=== PATIENT | female | born 1965 | race Caucasian/White ===

== ENCOUNTER 2023-03-30 09:22 | Day surgery (SDC) | payer OTHER ==
[~2023-03-30] VITALS: Ht 160 cm; Wt 68.9 kg
[2023-03-30] MEDS ORDERED: INSULIN REGULAR, HUMAN 100 UNIT/ML VIAL IVP SCH (10:25)
[2023-03-30] MEDS ORDERED: diphenhydrAMINE 50 MG/ML VIAL ONE (11:16)
[2023-03-30] MEDS ORDERED: MIDAZOLAM 5 MG/5 ML VIAL ONE (11:16)
[2023-03-30] MEDS ORDERED: fentaNYL citrate 0.05 MG/ML VIAL ONE (11:16)
[2023-03-30] MEDS ORDERED: MIDAZOLAM 2 MG/2 ML VIAL IVP ONE (12:15)
[2023-03-30] MEDS ORDERED: fentaNYL citrate 0.05 MG/ML VIAL IVP ONE (12:15)
[2023-03-30] MEDS ORDERED: diphenhydrAMINE 50 MG/ML VIAL IVP ONE (16:10)
== END 2023-03-30 13:30 | disposition home or self-care (01) ==
LOC: MDS 09:22 → MMU 09:24 → MDS 13:30
PROVIDERS: ATTEND Internal Medicine Gastroenterology
DX: R63.4 Abnormal weight loss (principal); K51.219 Ulcerative (chronic) proctitis with unspecified complications; R74.8 Abnormal levels of other serum enzymes; Z79.84 Long term (current) use of oral hypoglycemic drugs; Z79.899 Other long term (current) drug therapy
CPT/HCPCS: 43235; 45380; 82948; 88305; J1200; J1815; J2250; J3010